=== PATIENT | female | born 2000 | race African-American/Black ===

== ENCOUNTER 2021-07-21 23:50 | Observation (INO) | payer OTHER ==
[~2021-07-21] VITALS: Ht 167.6 cm; Wt 90.7 kg
[2021-07-22] MEDS ORDERED: PREN-176 MT (00:22)
[2021-07-22] MEDS ORDERED: ALBU6.7H9 INH (00:58)
[2021-07-22] MEDS ORDERED: LACTATED RINGERS 1,000 ML IV ONE (01:00)
[2021-07-22 01:03] LABS: CLARITY URINE CLEAR (CLEAR); COLOR URINE YELLOW (YELLOW); KETONES URINE 1+ (NEGATIVE); LEUKOCYTE ESTERASE URINE NEGATIVE (NEGATIVE); NITRITE URINE NEGATIVE (NEGATIVE); OCCULT BLOOD URINE NEGATIVE (NEGATIVE); PH URINE 7.5 (4.5-8.0); PROTEIN URINE TRACE (NEGATIVE); SPECIFIC GRAVITY URINE 1.012 (1.005-1.030)
== END 2021-07-22 20:21 | disposition home or self-care (01) ==
LOC: 8 EST LDRP 23:50
PROVIDERS: ADMIT Obstetrics & Gynecology; ATTEND Obstetrics & Gynecology
DX: O42.913 Preterm premature rupture of membranes, unspecified as to length of time between rupture and onset of labor, third trimester (principal); Z3A.33 33 weeks gestation of pregnancy
CPT/HCPCS: 59025; 76805; 76818; 81003; 96360; G0378; 99281; G0379

== ENCOUNTER 2021-08-21 19:24 | Observation (INO) | payer OTHER ==
[~2021-08-21] VITALS: Ht 167.6 cm; Wt 93.4 kg
[~2021-08-21 19:24] MED LIST: ALBU6.7H9 INH; PREN-176 MT
== END 2021-08-21 22:40 | disposition home or self-care (01) ==
LOC: 8 EST LDRP 19:24
PROVIDERS: ADMIT Obstetrics & Gynecology; ATTEND Obstetrics & Gynecology
DX: O26.853 Spotting complicating pregnancy, third trimester (principal); O62.9 Abnormality of forces of labor, unspecified; Z3A.38 38 weeks gestation of pregnancy
CPT/HCPCS: 59025; G0378; 99281

== ENCOUNTER 2021-08-28 05:18 | Inpatient (IN) | payer MEDICAID, OTHER ==
[~2021-08-28] VITALS: Ht 167.6 cm; Wt 93.4 kg
[2021-08-28] MEDS ORDERED: RHO(D) IMMUNE GLOBULIN 300 MCG/SYR IM ONE (06:15)
[2021-08-28] MEDS ORDERED: METHYLERGONOVINE MALEATE 0.2 MG/ML IM PRN (06:15)
[2021-08-28] MEDS ORDERED: DEXT 5%/LACTATED RINGERS 1,000 ML IV SCH (06:15)
[2021-08-28] MEDS ORDERED: GLYCERIN/WITCH HAZEL LEAF MEDICATED PAD TOP PRN (06:30)
[2021-08-28] MEDS ORDERED: RHO(D) IMMUNE GLOBULIN 300 MCG/SYR IM PRN (06:30)
[2021-08-28] MEDS ORDERED: ACETAMINOPHEN WITH CODEINE 300/30MG TABLET PO PRN (06:30)
[2021-08-28] MEDS ORDERED: HEMORRHOIDAL SUPP PR PRN (06:30)
[2021-08-28] MEDS ORDERED: LANOLIN OINT 7GM TUBE TOP PRN (06:30)
[2021-08-28] MEDS ORDERED: BENZOCAINE/LANOLIN/ALOE VERA SPRAY TOP PRN (06:30)
[2021-08-28] MEDS ORDERED: DIPHENHYDRAMINE 25MG CAPSULE PO PRN (06:30)
[2021-08-28] MEDS: DEXT 5%/LR + PITOCIN 20UNITS/L 1,000 ML IV SCH ×2 (06:49→11:32)
[2021-08-28 08:08] LABS: BASOPHILS % 0.3 % (0.0-2.0); EOSINOPHILS % 0.5 % (0.0-5.0); HEMATOCRIT. 34.3 % (36.0-48.0); HEMOGLOBIN. 11.2 g/dL (12.0-16.0); LYMPHOCYTES % 11.2 % (20.0-50.0); MEAN CORPUSCULAR HEMOGLOBIN 28.6 pg (28.0-32.0); MEAN CORPUSCULAR VOLUME 87.2 fL (81.0-99.0); MEAN PLATELET VOLUME 9.2 fl (7.4-10.4); MONOCYTES % 3.9 % (2.0-8.0); NEUTROPHILS % 84.1 % (40.0-76.0); PLATELET 277 x1000/uL (130-400); RED BLOOD CELL COUNT 3.93 mill/uL (4.2-5.4); RED CELL DISTRIBUTION WIDTH 14.3 % (11.6-14.6)
[2021-08-28 08:13] LABS: PARTIAL THROMBOPLASTIN TIME 32.2 sec (23.4-31.0); PROTHROMBIN TIME 11.1 sec (9.6-11.0)
[2021-08-28 08:52] VITALS: BP 110/70
[2021-08-28] MEDS: MAGNESIUM/ALUMINUM HYDROXIDE/SIMETHICONE 30ML UDC PO SCH ×3 (09:43→21:53)
[2021-08-28] MEDS: PRENATAL VIT/FE FUMARATE/FA TABLET PO SCH (09:43)
[2021-08-28] MEDS: SIMETHICONE 80MG TABLET CHEW PO SCH ×3 (09:44→21:53)
[2021-08-28] MEDS: IBUPROFEN 800MG TABLET PO PRN ×2 (09:44→21:53)
[2021-08-28 11:20] LABS: HEPATITIS B SURFACE ANTIGEN NEGATIVE
[2021-08-28 14:12] LABS: CLARITY URINE CLEAR (CLEAR); COLOR URINE RED (YELLOW); KETONES URINE TRACE (NEGATIVE); LEUKOCYTE ESTERASE URINE 1+ (NEGATIVE); NITRITE URINE NEGATIVE (NEGATIVE); OCCULT BLOOD URINE 3+ (NEGATIVE); PROTEIN URINE 1+ (NEGATIVE); SPECIFIC GRAVITY URINE 1.009 (1.005-1.030); UROBILINOGEN URINE 0.2 E.U./dL (0.2-1.0)
[2021-08-28 14:27] LABS: *AMPHETAMINES SCREEN URINE NEGATIVE (NEGATIVE); *BARBITURATES SCREEN URINE NEGATIVE (NEGATIVE); *BENZODIAZEPINES SCREEN URINE NEGATIVE (NEGATIVE); *COCAINE SCREEN URINE NEGATIVE (NEGATIVE); METHADONE URINE SCREEN NEGATIVE (NEGATIVE)
[2021-08-28 14:28] LABS: OPIATES URINE SCREEN NEGATIVE (NEGATIVE); PHENCYCLIDINE URINE SCREEN NEGATIVE (NEGATIVE)
[2021-08-28 14:33] LABS: CANNABINOID URINE SCREEN PRESUMTIVE POSITIVE (NEGATIVE)
[2021-08-28 16:00] VITALS: BP 106/60
[2021-08-28 20:18] VITALS: BP 109/42
[2021-08-28] MEDS ORDERED: DOCUSATE SODIUM 100MG CAPSULE PO SCH (21:00)
[2021-08-29 03:46] VITALS: BP 103/37
[2021-08-29 07:27] LABS: BASOPHILS % 0.7 % (0.0-2.0); EOSINOPHILS % 1.7 % (0.0-5.0); HEMATOCRIT. 32.5 % (36.0-48.0); HEMOGLOBIN. 10.5 g/dL (12.0-16.0); LYMPHOCYTES % 32.6 % (20.0-50.0); MEAN CORPUSCULAR HEMOGLOBIN 28.3 pg (28.0-32.0); MEAN CORPUSCULAR VOLUME 87.6 fL (81.0-99.0); MEAN PLATELET VOLUME 8.6 fl (7.4-10.4); MONOCYTES % 6.5 % (2.0-8.0); NEUTROPHILS % 58.5 % (40.0-76.0); PLATELET 257 x1000/uL (130-400); RED BLOOD CELL COUNT 3.71 mill/uL (4.2-5.4)
[2021-08-29] MEDS ORDERED: FERROUS SULFATE 325MG TABLET PO SCH (07:30)
[2021-08-29 07:45] VITALS: BP 98/48
[2021-08-29] MEDS: MAGNESIUM/ALUMINUM HYDROXIDE/SIMETHICONE 30ML UDC PO SCH (08:05)
[2021-08-29] MEDS: PRENATAL VIT/FE FUMARATE/FA TABLET PO SCH (08:05)
[2021-08-29] MEDS: SIMETHICONE 80MG TABLET CHEW PO SCH (08:06)
[2021-09-10 04:14] LABS: CANNABINOID CONFIRMATION URINE Positive (.)
== END 2021-08-29 13:10 | disposition home or self-care (01) | DRG 560 ==
LOC: OBSVTOIN 05:18 → 8 EST LDRP 05:18 → 8EST 08:09
PROVIDERS: ADMIT Obstetrics & Gynecology; ATTEND Obstetrics & Gynecology
PROC: 10D07Z6 Extraction of Products of Conception, Vacuum, Via Natural or Artificial Opening (ICD-10-PCS; principal; 2021-08-28)
DX: O26.893 Other specified pregnancy related conditions, third trimester (principal); Z37.0 Single live birth; Z20.822 Contact with and (suspected) exposure to COVID-19; Z3A.39 39 weeks gestation of pregnancy
CPT/HCPCS: 36415; 80305; 80349; 81003; 85025; 86592; 86703; 86762; 86850; 86900; 87340; 87426; 99281; J2590